=== PATIENT | male | born 1975 | race Caucasian/White ===

== ENCOUNTER 2024-05-07 15:58 | Emergency (ER) | payer BC, SELFPAY ==
[2024-05-07 16:00] VITALS: BP 154/85
--- NOTE | 2024-05-07 16:16 | ED.GENMED ---
History of Present Illness
General
Chief Complaint: Head Injury
Source: patient
Exam Limitations: none
Time Seen by Provider: 05/07/24 16:09
History of Present Illness
History of Present Illness:
See MDM
Past History
Past History
ED Past Medical History: None
ED Past Surgical History: None
Social History
Tobacco: Non-smoker
Alcohol: None
Drug: None
Personal:
Living: with family
Phy Exam
Physical Exam
Physical Exam:
See MDM
Course
Orders/Labs/Results
Orders:
Orders
05/07/24 16:13
CT Head W/o Iv Contrast Urgent
Comment:
Reason For Exam: superior headache
Vital Signs
Initial and Last Documented VS:
Initial Vital Signs
Temp Pulse Resp BP Pulse Ox
98.0 F 106 16 154/85 98
05/07/24 16:00 05/07/24 16:00 05/07/24 16:00 05/07/24 16:00 05/07/24 16:00
Last Documented Vital Signs
Temp Pulse Resp BP Pulse Ox
98.0 F 106 16 154/85 98
05/07/24 16:00 05/07/24 16:00 05/07/24 16:00 05/07/24 16:00 05/07/24 16:00
MDM/Problems Addressed
Differential Diagnosis Includes:
HPI and MDM Narrative:
49-year-old male presenting with superior headache after injury on Tuesday. Patient was getting into his car and hit his head. Since then, patient has had intermittent headache which is improved with Motrin. 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
the computer screen. Patient does acknowledge that he went to make sure he was not missing anything or causing any damage. We discussed the likelihood of concussion. Given ongoing symptoms, will obtain CT head
Physical exam
General: Well appearing and non-toxic
HEENT: protecting airway. EOMI. Mild tenderness to patient of superior scalp without skin changes or bogginess
Neck: supple. Soft nontender
CV: No evidence of cyanosis
Resp: No accessory muscle use
Abd: Non-distended
Extremities: No deformities
Neuro: alert
Psych: Normal affect
Skin: Intact
Problems Addressed including Acute and Chronic Conditions affecting care:
1. Concussion
Acuity: acute
Prognosis: stable
Details: Discussed expectant management. Given duration of symptoms, will obtain CT head
Updates
CT head negative. Patient feels comfortable going home
Differential Diagnosis (but not limited to): Concussion, subdural hematoma
Testing considered: CT neck with there is no tenderness on exam
Drug therapy (if applicable): OTC meds, please see d/c instruction regarding Rx drugs
Amount and/or Complexity of Data Reviewed
Clinical info obtained from: Patient
External data reviewed: N/A
Labs I independently reviewed (but not limited to): N/A
Radiology: The CT scan was personally and independently reviewed. In addition, official CT report reviewed.
Pulse Ox: not hypoxic
EKG independently reviewed: N/A
Pain Management Specialist: N/A
Critical Care: N/A
Risk of Complication:
Social Determinants of health: Good social support
Discussed with other providers: N/A
Escalation of Care includes Admit/Obs: After being observed in the Emergency Department, pt stable for discharge.
Occasional wrong word or 'sound a like' substitutions may have occurred due to the inherent limitations of voice recognition software. Read the chart carefully and recognize, using context, where substitutions have occurred.
*Critical Care Note
Total Time (30-74mins, 75-104mins- exclusive of procedures): Not Applicable
ED Attending Note
-
Portions of this chart may have been created with voice recognition software.� Occasional wrong word or��sound alike� substitutions may have occurred due to the inherent limitations of voice recognition software.
Discharge Plan
Departure
Patient Disposition: Home (Routine Discharge)
Date of Disposition: 05/07/24
Time of Disposition: 17:50
Patient with high blood pressure during this ER visit?: Yes
Discharge Problem:
Brain concussion
Instructions: Concussion, Adult (DC), BLOOD PRESSURE
Prescriptions:
No Action
albuterol sulfate [ProAir HFA] 90 mcg/actuation HFA aerosol inhaler
1 puff inhalation Q4HPRN PRN (Reason: shortness of breath) Qty: 6.7 0RF
albuterol sulfate 2.5 mg /3 mL (0.083 %) solution for nebulization
2.5 mg inhalation QID PRN (Reason: bronchospasm) Qty: 75 0RF
prednisone 20 mg tablet
40 mg PO DAILY 5 Days Qty: 10 0RF
Referrals:
Leighton Mccurdy DO [Family Provider] -
Activity Restrictions/Additional Instructions:
Please return for any worsening symptoms.
You may return at any time if you have further concerns.
Please follow up with your doctor at the first available appointment, preferably this week.
Thank you for choosing [facility].
Interventions
Interventions:
ED- Neurological Assessment Last Done: 05/07/24 16:23
ED-Skin Assessment Last Done: 05/07/24 16:23
Discharge Date and Time
Print Language: YI
== END 2024-05-07 18:13 | disposition home or self-care (01) ==
LOC: EMR 15:58
PROVIDERS: EMERGENCY PHYSICIAN Student in an Organized Health Care Education/Training Program; FAMILY PHYSICIAN Family Medicine
DX: S06.0X0A Concussion without loss of consciousness, initial encounter (principal); V48.4XXA Person boarding or alighting a car injured in noncollision transport accident, initial encounter; R51.9 Headache, unspecified; Z88.1 Allergy status to other antibiotic agents
CPT/HCPCS: 99284; 70450

== ENCOUNTER → 2024-11-07 14:26 | Outpatient (REF) | payer BC, SELFPAY | LOC: DHSLP 14:26 | PROVIDERS: ATTENDING PHYSICIAN Internal Medicine Critical Care Medicine | DX: G47.33 Obstructive sleep apnea (adult) (pediatric) (principal) | CPT/HCPCS: 95800 ==

== ENCOUNTER 2024-11-17 13:35 | Emergency (ER) | payer BC, SELFPAY ==
[2024-11-17 13:45] VITALS: BP 134/91
[2024-11-17 14:05] LABS: % Basophils 0.5 % (0-2); % Eosinophils 2.1 % (0-6); % Immature Granulocytes 0.4 % (0-0.5); % Lymphocytes 31.9 % (20.5-51.1); % Monocytes 9.6 % (1.7-9.3); % Neutrophils 55.5 % (42.2-75.2); Absolute Basophils 0.1 10^3/uL (0-0.2); Absolute Eosinophils 0.2 10^3/uL (0-0.7); Absolute Lymphocytes 3.5 10^3/uL (1.2-3.4); Absolute Monocytes 1.1 10^3/uL (0.1-0.6); Absolute Neutrophils 6.1 10^3/uL (1.4-6.5); Hematocrit 46.9 % (39.0-52.0); Hemoglobin 15.6 g/dL (13.0-18.0); Mean Corp Hgb Conc. 33.3 g/dL (33.0-37.0); Mean Corpuscular Hgb 29.9 pg (27.0-31.0); Mean Corpuscular Volume 89.8 fL (80.0-94.0); Mean Platelet Volume 9.3 fL (7.4-10.4); Nucleated Red Blood Cells % 0 % (-); Platelet Count 297 10^3/uL (130-400); Red Blood Cell Count 5.22 10^6/uL (4.70-6.10); Red Cell Dist. Width 13.2 % (11.5-14.5); White Blood Cell Count 11.1 10^3/uL (4.8-10.8)
[2024-11-17 14:22] LABS: ALT (SGPT) 62 U/L (0-50); AST (SGOT) 46 U/L (17-59); Albumin 4.2 g/dl (3.5-5.0); Alkaline Phosphatase 99 U/L (38-126); Blood Urea Nitrogen 17 mg/dl (9-20); Calcium 9.4 mg/dl (8.4-10.2); Carbon Dioxide 26 mmol/L (22-30); Chloride 105 mmol/L (98-107); Glucose 89 mg/dl (70-99); Potassium 4.3 mmol/L (3.5-5.1); Sodium 140 mmol/L (135-145); Total Bilirubin 0.7 mg/dl (0.2-1.3); eGFR > 60.00
[2024-11-17 14:34] LABS: Troponin I < 0.012 ng/ml
[2024-11-17 16:39] VITALS: BP 120/84
--- NOTE | 2024-11-17 19:25 | ED.GENMED ---
History of Present Illness
General
Chief Complaint: Chest Pain
Source: patient
Exam Limitations: none
Time Seen by Provider: 11/17/24 18:19
Nursing documentation reviewed up to this point in time: agreed with
History of Present Illness
History of Present Illness:
49-year-old male presenting to the emergency department with left hand weakness/numbness since yesterday. Patient states yesterday afternoon/evening he noticed that his left fourth and fifth digits felt weak with some numbness/tingling. He also
noticed similar symptoms along the left lateral aspect of his hand and a small area on his forearm. 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
Patient states he did feel a twinge in his left axillary/chest region and became concerned that it may be his heart. Patient denies any other associated chest pain. No shortness of breath. Patient denies any headache, neck pain, back pain,
numbness/tingling elsewhere.
Patient denies any recent fever, chills, or cough.
Past History
Past History
ED Past Medical History: None
ED Past Surgical History: None
Social History
Tobacco: Non-smoker
Alcohol: None
Drug: None
Personal:
Living: with family
Review of Systems
Review of Systems
Allergies reviewed?: Yes
All Other Systems: ROS reviewed and negative except as documented in HPI and ROS
Phy Exam
Physical Exam
Physical Exam:
Vitals: Hypertensive, otherwise vital signs stable. Afebrile
General: Patient is well appearing, no acute distress. Nontoxic appearing
Skin: Warm and dry, no rashes or lesions
Head: Normocephalic, atraumatic
Eyes: Sclera nonicteric. EOMs intact. No nystagmus.
Throat: Protecting airway
Neck: Normal ROM, no cervical spine tenderness, no lateral neck tenderness, no meningismus. No JVD
Cardiac: Regular rate and rhythm, no murmurs. No reproducible chest wall tenderness.
Pulm: Normal respiratory effort, no wheezes, rales, rhonchi heard on exam.
Abdomen: No abdominal tenderness.
Extremities: LUE with palpable L radial, brachial pulse. Capillary refill within the limits. Patient has full strength against resistance on exam in left wrist, left elbow, and left shoulder. Sensation grossly intact. No obvious deformity,
swelling, or erythema of LUE
Neuro: AAOx3. CN II-XII intact. No focal neurologic deficits.
Psychiatric: Normal affect.
Scores
Heart Score for Chest Pain Patients
STEMI patient?: Not applicable
Course
Orders/Labs/Results
Orders:
Orders
11/17/24 13:37
Electrocardiogram (*1) Urgent
Reason for Study: Chest Pain
EKG- Treatment ONCE
11/17/24 13:53
Complete Blood Count/With Diff Urgent
Comprehensive Metabolic Panel Urgent
Troponin I Urgent
11/17/24 19:08
CR Chest - 2 Views Urgent
Comment:
Reason For Exam: left chest pain, left arm tingling
11/17/24 20:11
CT Head W/o Iv Contrast Urgent
Comment:
Reason For Exam: left arm weakness
Abnormal Lab Results
11/17/24
13:53
WBC 11.1 H 10^3/uL
(4.8-10.8)
Absolute Lymphs (auto) 3.5 H 10^3/uL
(1.2-3.4)
Absolute Monos (auto) 1.1 H 10^3/uL
(0.1-0.6)
Monocytes % 9.6 H %
(1.7-9.3)
ALT 62 H U/L
(0-50)
11/17/24 13:53
11/17/24 13:53
Vital Signs
Initial and Last Documented VS:
Initial Vital Signs
Temp Pulse Resp BP Pulse Ox
98.1 F 94 18 134/91 96
11/17/24 13:45 11/17/24 13:45 11/17/24 13:45 11/17/24 13:45 11/17/24 13:45
Last Documented Vital Signs
Temp Pulse Resp BP Pulse Ox
98.7 F 67 20 146/95 94
11/17/24 19:38 11/17/24 22:00 11/17/24 22:00 11/17/24 22:00 11/17/24 19:38
MDM/Problems Addressed
Differential Diagnosis Includes:
Not limited to: Ulnar neuropathy, cubital tunnel syndrome electrolyte abnormality, muscular strain, CVA
MDM/Problems Addressed:
49-year-old male presenting with numbness and mild weakness of left fourth/fifth digit and small area on forearm. Symptoms started yesterday. He did have difficulty holding a metal wheeler while cleaning dishes earlier. Patient denies associated
chest pain or shortness of breath although presented to emergency room given concern of possible cardiac etiology. No other neurologic symptoms. Patient mildly hypertensive, otherwise stable vital signs. Physical exam as above. Patient alert and
oriented x 3. He has mild tingling noted along distribution of ulnar nerve of left upper extremity below elbow. Normal colorist dyer strength on exam. He has full range of motion in his left upper extremity. No indication of traumatic injury. Patient
neurologically intact without any other focal deficits. He has fluid speech and steady gait. No facial droop or asymmetry. Ultimately�symptoms mostly consistent with an ulnar neuropathy. Do not suspect cardiac etiology although will screen with
troponin and EKG. Much lower suspicion for central process although given history of left arm weakness�will obtain head CT. Basic labs initiated in triage without any clinically significant abnormalities.
Update: Troponin undetectable. Given symptoms been constant since yesterday evening feel the suspicion to rule out acute AK. EKG shows normal sinus rhythm without any acute ischemic changes. Chest x-ray also obtained without any acute findings.
Fortunately�head CT without any acute abnormalities. Patient very well-appearing. Low suspicion for acute emergent process. Suspect likely ulnar neuropathy, possibly cubital tunnel syndrome. Will recommend supportive care including icing,
NSAIDs, activity modifications. He will follow-up with primary care outpatient. Close return precautions discussed. Case discussed with attending physician.
Chronic conditions affecting care:
N/A
Acute Exacerbation and/or Progression of Chronic Illness:
N/A
*Radiology
Radiology exam reviewed: preliminary read by ED provider (Chest x-ray reviewed by fl-no acute abnormalities) and radiology read reviewed
*Pulse Oximetry
Patient hypoxic: no
*EKG
Interpreted by ED Provider?: Yes
EKG Intrepretation Date: 11/18/24
Interpretation: normal
Comparison EKG: no comparison EKG present
Heart Rate: 95
Rate: normal
Rhythm: sinus arrhythmia
[place]: normal axis
Interval: normal interval
QRS Pattern: normal QRS
Ischemia: no ischemia
*Health And Wellness Advisor Interpretation
Rate: normal
Interpretation: normal
Heart Rate: 82
Rhythm: sinus
*Critical Care Note
Total Time (30-74mins, 75-104mins- exclusive of procedures): Not Applicable
ED Attending Note
-
Portions of this chart may have been created with voice recognition software.� Occasional wrong word or��sound alike� substitutions may have occurred due to the inherent limitations of voice recognition software.
Discharge Plan
Departure
Patient Disposition: Home (Routine Discharge)
Date of Disposition: 11/17/24
Time of Disposition: 22:14
Patient with high blood pressure during this ER visit?: Yes
Condition: Good
Covid-19: Negative COVID-19
Discharge Problem:
Ulnar neuropathy of left upper extremity
Instructions: Cubital Tunnel Syndrome (DC)
Prescriptions:
No Action
No Current Medications
0
Referrals:
Leighton Mccurdy, [Family Provider] - Follow up in 5-7 days
Activity Restrictions/Additional Instructions:
Return to the emergency department with any significant worsening in numbness/weakness in left arm, chest pain, shortness of breath, other neurologic symptoms, worsening current symptoms, or any other concerns
-As discussed�your lab work, head CT, and chest x-ray showed no acute abnormalities today. I suspect you likely have a neuropathy of your ulnar nerve.
-Continue to take Tylenol and/or Motrin as needed for discomfort. You can apply ice and wrap elbow or apply brace as needed for comfort. You should avoid leaning on your elbows and any activities that aggravate pain.
-Follow-up with primary care for further evaluation/management to ensure that symptoms are improving. You may need to see symptoms persist/worsen
Monitor your symptoms closely and return to the emergency department with any acute worsening/new symptoms or any other concerns
Interventions
Interventions:
*Risk Screen - Suicide Last Done: 11/17/24 13:45
*General Assessment Last Done: 11/17/24 13:45
*Neglect/Abuse Screening Last Done: 11/17/24 13:45
ED- Fall Risk Assessment Last Done: 11/17/24 19:50
*ED COVID-19 Vaccine History Last Done: 11/17/24 15:37
*Nursing Disposition Last Done: 11/17/24 22:27
ED- Cardiac Assessment Last Done: 11/17/24 19:50
Discharge Date and Time
Discharge Date/Time: 11/17/24 22:27
Print Language: AMHARIC
[2024-11-17 19:34] VITALS: BMI 34.9
[2024-11-17 19:37] VITALS: BP 122/88
--- NOTE | 2024-11-17 19:40 | EDRN ---
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 This has been constant since. No exercising, heavy lifting yesterday 'just at my computer at work.'
Sometimes the tingling wraps over to dorsal forearm and occasionally pt feels something in upper L shoulder/chest. Pt feels weak in L arm and says since he had covid second time, he does not feel right and is seeing a cable television line technician on Tuesday. No
spb, abd pain, n/v, diaphoresis, fever/chills/cough, dizziness.
--- NOTE | 2024-11-17 19:44 | EDRN ---
Pt denies headache, visual/speech disturbance
[2024-11-17 20:00] VITALS: BP 118/92
[2024-11-17 21:48] VITALS: BP 135/88
[2024-11-17 22:00] VITALS: BP 146/95
--- NOTE | 2024-11-17 22:16 | EDRN ---
Pt came out of room, dressed ready to leave stating the PA told him he could go. Informed waiting for discharge paperwork. Pt back into room to wait.
== END 2024-11-17 22:27 | disposition home or self-care (01) ==
LOC: EMR 13:35
PROVIDERS: Student in an Organized Health Care Education/Training Program; EMERGENCY PHYSICIAN Emergency Medicine; FAMILY PHYSICIAN Family Medicine
DX: G56.22 Lesion of ulnar nerve, left upper limb (principal); R03.0 Elevated blood-pressure reading, without diagnosis of hypertension
CPT/HCPCS: 99285; 70450; 71046; 80053; 84484; 85025; 93005

== ENCOUNTER → 2025-01-08 08:57 | Outpatient (REF) | payer BC, SELFPAY | LOC: HWRAD 08:57 | PROVIDERS: ATTENDING PHYSICIAN Internal Medicine Critical Care Medicine; FAMILY PHYSICIAN Family Medicine | DX: R05.3 Chronic cough (principal); R91.1 Solitary pulmonary nodule | CPT/HCPCS: 71250 ==